=== PATIENT | female | born 1960 | race Hispanic/Latino ===

== ENCOUNTER 2019-02-06 11:51 | Day surgery (SDC) | payer BC ==
[2019-01-31 13:16] VITALS: BP 123/77
[2019-01-31 13:24] LABS: BASOPHILS % (AUTO) 0.8 % (0.0-5.0); EOSINOPHILS % (AUTO) 0.2 % (0.0-8.0); HEMATOCRIT 37.4 % (36-48); LYMPHOCYTES % (AUTO) 30.2 % (21.0-51.0); MEAN CORPUSCULAR HEMOGLOBIN 29.4 pg (27.0-33.0); MEAN CORPUSCULAR HGB CONC 34.4 g/dL (32.0-36.0); MEAN CORPUSCULAR VOLUME 85.6 fL (79-99); MONOCYTES % (AUTO) 6.8 % (3.0-13.0); PLATELET COUNT (AUTO) 297 K/uL (130-400); RED BLOOD CELL COUNT(AUTO) 4.37 MIL/uL (4.00-5.50); RED CELL DISTRIBUTION WIDTH 13.2 % (11.0-15.5); WHITE BLOOD COUNT (AUTO) 6.4 K/uL (4.8-10.8)
[2019-01-31 13:32] LABS: CREATININE 0.9 mg/dL (0.5-1.5); POTASSIUM 4.2 mmol/L (3.5-5.1)
[2019-02-06] VITALS (13 sets, daily range): BP systolic 111–125; BP diastolic 65–81
[~2019-02-06] VITALS: Ht 162.6 cm; Wt 80.8 kg
[~2019-02-06 11:51] MED LIST: PHARMACY COMMUNICATION MISC SCH
[2019-02-06] MEDS ORDERED: LACTATED RINGERS 1000ML 1,000 ML IV ONE (12:12)
[2019-02-06] MEDS ORDERED: ACETIC ACID 0.25% 1,000 ML IRRIG.SOLN ONE (12:26)
[2019-02-06] MEDS ORDERED: STRONG IODINE SOLUTION 30ML BOTTLE ONE (12:26)
[2019-02-06] MEDS ORDERED: MEPERIDINE-PF 25 MG/ML SYG ONE ×3 (12:44→14:28)
[2019-02-06] MEDS ORDERED: VASOPRESSIN 20 UNITS/ML 1ML VIAL ONE (12:54)
[2019-02-06] MEDS ORDERED: MIDAZOLAM HCL 1 MG/ML 2ML VIAL ONE (13:09)
[2019-02-06] MEDS ORDERED: PROPOFOL 10 MG/ML 20ML VIAL IV ONE (13:09)
[2019-02-06] MEDS ORDERED: ROCURONIUM 10MG/1ML SYR 10 MG/ML ML ONE (13:15)
[2019-02-06] MEDS ORDERED: FENTANYL CITRATE PF 50 MCG/1 ML 2ML VIAL ONE (13:24)
[2019-02-06] MEDS ORDERED: ONDANSETRON HCL 4 MG/2 ML VIAL ONE ×2 (13:39→14:15)
[2019-02-06] MEDS ORDERED: GLYCOPYRROLATE 1 MG/5 ML SYRINGE ONE (13:47)
[2019-02-06] MEDS ORDERED: NEOSTIGMINE 5MG/5ML SYR IV ONE (13:47)
[2019-02-06] MEDS ORDERED: METOCLOPRAMIDE 10 MG/2 ML VIAL ONE (14:15)
--- NOTE | 2019-02-06 14:55 | NUR ---
PT ARRIVED FROM PACU IN NO DISTRESS. NO VAGINAL BLEEDING NOTED. FEMININE PAD CLEAN. PT AAOX3, DENIES ANY PAIN
== END 2019-02-06 15:45 | disposition home or self-care (01) ==
LOC: DAH 11:51
PROVIDERS: ATTEND Specialist
DX: R87.613 High grade squamous intraepithelial lesion on cytologic smear of cervix (HGSIL) (principal); K21.9 Gastro-esophageal reflux disease without esophagitis; E66.9 Obesity, unspecified; Z90.49 Acquired absence of other specified parts of digestive tract; Z98.890 Other specified postprocedural states
CPT/HCPCS: 36415; 57520; 80048; 85025; A4351; J2175 ×3; J2250; J2405 ×2; J2704; J2710; J2765; J3010; J3490 ×2; J7120

== ENCOUNTER 2020-12-02 06:17 | Day surgery (SDC) | payer BC ==
[2020-11-26 11:20] LABS: EOSINOPHILS % (AUTO) 2.5 % (0.0-8.0); HEMATOCRIT 38.8 % (36-48); LYMPHOCYTES % (AUTO) 30.4 % (21.0-51.0); MEAN CORPUSCULAR HEMOGLOBIN 28.7 pg (27.0-33.0); MEAN CORPUSCULAR HGB CONC 33.2 g/dL (32.0-36.0); MEAN CORPUSCULAR VOLUME 86.4 fL (79-99); MONOCYTES % (AUTO) 7.9 % (3.0-13.0); NEUTROPHILS % (AUTO) 58.9 % (40.0-77.0); PLATELET COUNT (AUTO) 275 K/uL (130-400); RED BLOOD CELL COUNT(AUTO) 4.49 MIL/uL (4.00-5.50); WHITE BLOOD COUNT (AUTO) 6.8 K/uL (4.8-10.8)
[2020-12-01 09:44] VITALS: BP 138/80
[~2020-12-02] VITALS: Ht 165.1 cm; Wt 80.7 kg
[2020-12-02] VITALS (16 sets, daily range): BP systolic 116–131; BP diastolic 65–81
[2020-12-02] MEDS ORDERED: PROPOFOL 10 MG/ML 20ML VIAL IV ONE ×2 (07:00→08:07)
[2020-12-02] MEDS ORDERED: DEXAMETHASONE SOD PHOSPHATE 10MG/ML 1ML VIAL ONE (07:00)
[2020-12-02] MEDS ORDERED: LIDOCAINE PF 2% 5ML ABBOJECT ONE (07:00)
[2020-12-02] MEDS ORDERED: ONDANSETRON HCL 4 MG/2 ML VIAL ONE (07:00)
[2020-12-02] MEDS ORDERED: MIDAZOLAM HCL 1 MG/ML 2ML VIAL ONE (07:00)
[2020-12-02] MEDS ORDERED: FENTANYL CITRATE PF 50 MCG/1 ML 2ML VIAL ONE (07:01)
[2020-12-02] MEDS ORDERED: ROCURONIUM 10MG/1ML SYR 10 MG/ML ML ONE (07:01)
[2020-12-02] MEDS ORDERED: CEFAZOLIN SODIUM 1 GM VIAL ONE (07:12)
[2020-12-02] MEDS: LACTATED RINGERS 1000ML 1,000 ML IV SCH ×2 (07:26→08:30)
[2020-12-02] MEDS ORDERED: FAMO20TA8 PO (07:38)
[2020-12-02] MEDS ORDERED: HYDR-3421 PO (07:38)
[2020-12-02] MEDS ORDERED: NEOMY SULF/BACITRAC ZN/POLY OINT 30GM TUBE TP ONE (08:20)
[2020-12-02] MEDS ORDERED: MEPERIDINE-PF 25 MG/ML SYG ONE ×2 (08:40→08:50)
== END 2020-12-02 10:24 | disposition home or self-care (01) ==
LOC: DAH 06:17
PROVIDERS: ATTEND Specialist
DX: N89.1 Moderate vaginal dysplasia (principal); Z20.828 Contact with and (suspected) exposure to other viral communicable diseases
CPT/HCPCS: 36415; 57135; 85025; A4215; A4216; A4221; A4222; A4223 ×2; A4351; A4606; A4663; A6260; C9803; J0690; J1100; J2001; J2175 ×2; J2250; J2405; J2704 ×2; J3010; J7120; U0003